=== PATIENT | female | born 1965 | race Hispanic/Latino ===

== ENCOUNTER 2019-05-20 16:32 | Inpatient (IN) | payer OTHER ==
[~2019-05-20] VITALS: Ht 165.1 cm; Wt 89.1 kg
--- OUTSIDE RECORDS SUMMARY | 2019-05-20 16:35 | XMS REPORT ---
[facility] Address Unknown Phone Unavailable Care Team Providers Care Package Worker Name Role Phone Unavailable Unavailable Problems This patient has no known problems. Allergies, Adverse Reactions, Alerts This patient has no known allergies or adverse reactions. Medications This patient has no known medications. Encounters Start Date/Time End Date/Time Encounter Type Admission Type Attending [facility] Care Department Encounter ID 2019-06-07 00:00:00 2019-06-07 00:00:00 Outpatient [facility] [id number] 2019-05-30 00:00:00 2019-05-30 00:00:00 Outpatient [facility] [id number] 2019-05-29 00:00:00 2019-05-29 00:00:00 Outpatient [facility] [id number] 2019-05-17 00:00:00 2019-05-17 00:00:00 Outpatient [facility] [id number] 2019-05-01 00:00:00 2019-05-01 00:00:00 Outpatient [facility] [id number] 2019-05-01 00:00:00 2019-05-01 00:00:00 Outpatient [facility] [id number] 2019-04-18 00:00:00 2019-04-18 00:00:00 Outpatient [facility] [id number] 2019-03-19 08:32:07 2019-03-19 08:32:07 Outpatient [facility] [id number] 2019-02-25 17:14:10 2019-02-25 17:14:10 Outpatient [facility] [id number] 2019-02-13 09:12:59 2019-02-13 09:12:59 Outpatient [facility] [id number] 2018-10-08 17:54:45 2018-10-08 17:54:45 Outpatient [facility] [id number] 2018-08-27 00:00:00 2018-08-27 00:00:00 Outpatient [facility] [id number] 2018-08-07 08:00:16 2018-08-07 08:00:16 Outpatient [facility] [id number] 2018-07-26 15:41:26 2018-07-26 15:41:26 Outpatient [facility] [id number] 2018-06-22 09:35:54 2018-06-22 09:35:54 Outpatient [facility] [id number] 2018-05-30 09:08:05 2018-05-30 09:08:05 Outpatient [facility] [id number] 2018-05-29 10:36:43 2018-05-29 10:36:43 Outpatient [facility] [id number] 2018-05-29 00:00:00 2018-05-29 00:00:00 Outpatient [facility] [id number] 2018-05-28 13:42:27 2018-05-28 13:42:27 Outpatient [facility] [id number] 2018-05-16 11:47:09 2018-05-16 11:47:09 Outpatient [facility] [id number] 2018-05-04 00:00:00 2018-05-04 00:00:00 Outpatient [facility] [id number] 2018-04-25 08:00:32 2018-04-25 08:00:32 Outpatient [facility] [id number] 2018-04-25 00:00:00 2018-04-25 00:00:00 Outpatient [facility] [id number] 2018-04-13 10:58:24 2018-04-13 10:58:24 Outpatient [facility] [id number] 2018-04-06 00:00:00 2018-04-06 00:00:00 Outpatient [facility] [id number] 2018-04-02 08:59:38 2018-04-02 08:59:38 Outpatient [facility] [id number] 2018-03-21 00:00:00 2018-03-21 00:00:00 Outpatient [facility] [id number] 2018-03-12 10:00:55 2018-03-12 10:00:55 Outpatient [facility] [id number] 2018-02-23 11:53:31 2018-02-23 11:53:31 Outpatient [facility] [id number] 2018-02-02 00:00:00 2018-02-02 00:00:00 Outpatient [facility] [id number] 2018-01-09 16:41:40 2018-01-09 16:41:40 Outpatient [facility] [id number] 2018-01-08 10:20:23 2018-01-08 10:20:23 Outpatient [facility] [id number] 2018-01-01 10:15:44 2018-01-01 10:15:44 Outpatient [facility] [id number] 2017-11-22 11:33:45 2017-11-22 11:33:45 Outpatient [facility] [id number] 2017-11-06 10:15:06 2017-11-06 10:15:06 Outpatient [facility] [id number] 2017-10-31 07:51:55 2017-10-31 07:51:55 Outpatient [facility] [id number] 2017-10-31 00:00:00 2017-10-31 00:00:00 Outpatient [facility] [id number] 2017-10-27 08:26:57 2017-10-27 08:26:57 Outpatient [facility] [id number] 2017-09-22 09:51:45 2017-09-22 09:51:45 Outpatient [facility] [id number] 2017-09-15 08:54:18 2017-09-15 08:54:18 Outpatient [facility] [id number] 2017-08-14 10:05:41 2017-08-14 10:05:41 Outpatient [facility] [id number] 2017-06-27 08:46:20 2017-06-27 08:46:20 Outpatient [facility] [id number] 2017-06-23 08:41:09 2017-06-23 08:41:09 Outpatient [facility] [id number] 2017-06-08 14:00:45 2017-06-08 14:00:45 Outpatient [facility] [id number] 2017-05-30 00:00:00 2017-05-30 00:00:00 Outpatient [facility] [id number] 2017-05-25 11:16:02 2017-05-25 11:16:02 Outpatient [facility] [id number] 2017-05-16 08:30:08 2017-05-16 08:30:08 Outpatient [facility] [id number] 2017-04-20 15:34:47 2017-04-20 15:34:47 Outpatient [facility] [id number] 2017-04-14 08:46:50 2017-04-14 08:46:50 Outpatient [facility] [id number] 2017-03-13 08:08:03 2017-03-13 08:08:03 Outpatient [facility] [id number] 2017-03-02 00:00:00 2017-03-02 00:00:00 Outpatient [facility] [id number] 2017-02-24 08:10:33 2017-02-24 08:10:33 Outpatient [facility] [id number] 2017-02-15 10:30:51 2017-02-15 10:30:51 Outpatient [facility] [id number] 2017-02-14 08:47:34 2017-02-14 08:47:34 Outpatient [facility] [id number] 2017-02-10 11:27:00 2017-02-10 11:27:00 Outpatient [facility] [id number] 2017-01-09 09:05:12 2017-01-09 09:05:12 Outpatient [facility] [id number] 2017-01-06 08:07:07 2017-01-06 08:07:07 Outpatient [facility] [id number] 2016-12-21 10:12:07 2016-12-21 10:12:07 Outpatient [facility] [id number]
[2019-05-20] MEDS ORDERED: ENOXAPARIN INJ 80 MG/0.8 ML SYR SC ONE (16:56)
[2019-05-20] MEDS ORDERED: ASPIRIN 81 MG CHEW TAB PO ONE (17:00)
[2019-05-20 17:21] LABS: BASOPHILS % 0.4 % (0.0-1.0); EOSINOPHILS % 0.4 % (0.0-6.0); HEMATOCRIT 42.1 % (34.2-44.1); HEMOGLOBIN 14.7 g/dL (12.0-16.0); LYMPHOCYTES # (AUTO) 0.9 (1.0-3.2); LYMPHOCYTES % 12.6 % (18.0-39.1); MEAN CORPUSCULAR HEMOGLOBIN 30.8 pg (28-32); MEAN CORPUSCULAR HGB CONC 34.9 g/dL (31-35); MEAN CORPUSCULAR VOLUME 88.3 fL (81-99); MONOCYTES # (AUTO) 0.5 (0.2-0.8); NEUTROPHILS # (AUTO) 5.6 (2.1-6.9); NEUTROPHILS % 79.3 % (38.7-80.0); PLATELET COUNT 295 x10e3/uL (140-360); RED BLOOD COUNT 4.77 x10e6/uL (3.6-5.1); RED CELL DISTRIBUTION WIDTH 12.4 % (11.7-14.4)
[2019-05-20 17:33] LABS: ALANINE AMINOTRANSFERASE 19 IU/L (0-55); ALBUMIN 3.7 g/dL (3.5-5.0); ALBUMIN/GLOBULIN RATIO 0.8 (0.8-2.0); ALKALINE PHOSPHATASE 83 IU/L (40-150); ANION GAP 17.8 mmol/L (8-16); BLOOD UREA NITROGEN 18 mg/dL (7-26); BUN/CREATININE RATIO 24 (6-25); CALCIUM 10.5 mg/dL (8.4-10.2); CARBON DIOXIDE 27 mmol/L (22-29); CHLORIDE 87 mmol/L (98-107); CREATINE KINASE 33 IU/L (29-168); CREATININE, SERUM 0.75 mg/dL (0.57-1.11); EST GLOMERULAR FILTRATION RATE > 60 ML/MIN (60-); GLUCOSE 216 mg/dL (74-118); POTASSIUM 3.8 mmol/L (3.5-5.1); SODIUM 128 mmol/L (136-145)
[2019-05-20 17:42] LABS: PROTHROMBIN TIME 13.7 seconds (11.9-14.5)
[2019-05-20 17:43] LABS: PARTIAL THROMBOPLASTIN TIME 38.6 seconds (23.8-35.5)
--- NOTE | 2019-05-20 17:45 | Diagnostic Imaging Report ---
EXAM: CHEST SINGLE (PORTABLE) DATE: 05/20/2019 4:56 PM INDICATION: Chest pain ^ERMD ORDER ^[id number] ^1717 ^Y COMPARISON: None FINDINGS: Lines and tubes: None Heart size normal. There are very low lung volumes with crowding of markings and mild atelectasis at the lung bases. No evidence for consolidation, pleural effusion or pneumothorax. Upper abdomen unremarkable with cholecystectomy clips noted. No acute bony abnormality. IMPRESSION: Low lung volumes with atelectasis at the lung bases. No specific evidence for acute disease. Signed by: Dr. Vicente Landeros M.D. on 05/20/2019 5:42 PM
--- NOTE | 2019-05-20 18:56 | NUR ---
RECIEVED REPORT FROM DARREL PRATT
--- NOTE | 2019-05-20 19:22 | Diagnostic Imaging Report ---
EXAM: CT Chest, Abdomen and Pelvis WITH contrast INDICATION: Shortness of breath COMPARISON: Chest x-ray, 05/20/2019 TECHNIQUE: Chest, abdomen and pelvis were scanned utilizing a multidetector helical scanner from the lung apex to the pubic symphysis before and after administration of IV contrast. Chest examination was performed with PE protocol. Coronal and sagittal reformations were obtained. Routine protocol was performed of the abdomen and pelvis. Dose modulation, iterative reconstruction, and/or weight based adjustment of the mA/kV was utilized to reduce the radiation dose to as low as reasonably achievable. IV CONTRAST: 100 mL of Isovue-370 ORAL CONTRAST: None RADIATION DOSE: Total DLP: 1323.50 mGy*cm Estimated effective dose: (DLP x 0.015 x size factor) mSv COMPLICATIONS: None FINDINGS: LINES and TUBES: None. LUNGS AND AIRWAYS: No filling defect is seen within the main pulmonary artery or branches to the first order. Because of bolus timing and artifact more distal branches are not well evaluated. There is consolidation with air bronchograms in the lower lobes. Trachea and main bronchi are clear. PLEURA: No pleural effusion or pneumothorax. HEART AND MEDIASTINUM: The thyroid gland is normal. No mediastinal, hilar or axillary lymphadenopathy. The heart is normal in size.. There is trace pericardial effusion. The thoracic aorta is unremarkable with no aneurysm or dissection. The main pulmonary artery measures 3.8 cm, dilated. HEPATOBILIARY: No focal hepatic lesions. No biliary ductal dilation. GALLBLADDER: The gallbladder surgically absent with cholecystectomy clips. SPLEEN: No splenomegaly. PANCREAS: No focal masses or ductal dilatation. ADRENALS: No adrenal nodules KIDNEYS/URETERS: Kidneys enhance symmetrically. No hydronephrosis. There is a small hypodensity in the upper pole right kidney, not fully characterized on this examination, with an appearance suggesting a likely cyst. No stones. GI TRACT: There is dilatation of small bowel containing excess fluid. There is dilatation of the colon from the cecum to the splenic flexure. The cecum is markedly distended measuring 11.1 cm diameter. Sutures are seen related to the stomach. The appendix is not visualized. PELVIC ORGANS/BLADDER: Urinary bladder has an unremarkable appearance. No discrete abnormal mass or fluid collection in the pelvis. LYMPH NODES: No lymphadenopathy. VESSELS: Abdominal aorta, IVC and portal system unremarkable. PERITONEUM / RETROPERITONEUM: Trace ascites, seen mainly adjacent to the inferior aspect of the liver. BONES: No acute or suspicious bony lesions. SOFT TISSUES: Superficial surrounding soft tissue shows minimal subcutaneous air in the anterior abdominal wall at the level of the umbilicus. Presumably this is related to recent surgery. There is focal thickening of the anterior abdominal wall in the midline adjacent to these air bubbles. There is adjacent inflammatory stranding in the soft tissue. IMPRESSION: 1. There is marked distention of small bowel and of the colon to the splenic flexure. A specific etiology is not determined and this may represent severe ileus. An intraluminal obstructing lesion in the proximal descending colon could not be excluded but is not seen. 2. There is marked distention of the cecum measuring smudges 11.1 cm which is concerning. At this level spontaneous perforation is possible. There is no evidence for free air seen. 3. There is trace ascites in the abdomen. 4. No evidence for acute pulmonary embolism. 5. Consolidation with air bronchograms in both lower lobes may represent extensive atelectasis or pneumonia. 6. In the anterior abdominal wall, near the umbilical level, there is fat stranding, thickening of the anterior musculature and a few soft tissue air bubbles. This may be entirely post operative although subcutaneous infection is also a consideration. No discrete drainable fluid collection to limits of CT visualization. Signed by: Dr. Vicente Landeros M.D. on 05/20/2019 7:19 PM
[2019-05-20] MEDS ORDERED: HYDROMORPHONE 1MG/1ML INJ IV ONE (19:32)
[2019-05-20] MEDS ORDERED: SODIUM CHLORIDE 0.9% 1000ML 1,000 ML IV ONE (19:45)
[2019-05-20] MEDS ORDERED: DEXTROSE 50% SYRINGE 50 ML IV PRN (20:00)
[2019-05-20] MEDS ORDERED: SODIUM CHLORIDE 0.9% 1000ML 1,000 ML IV SCH (20:15)
[2019-05-20 20:41] LABS: BILIRUBIN,URINE SMALL (NEGATIVE); CLARITY,URINE SL CLOUDY (CLEAR); COLOR,URINE YELLOW (YELLOW); LEUKOCYTE ESTERASE ,URINE NEGATIVE (NEGATIVE); NITRITE,URINE NEGATIVE (NEGATIVE); PROTEIN,URINE DIPSTICK TRACE (NEGATIVE); URINE UROBILINOGEN 1 mg/dL (0.2 - 1)
[2019-05-20 20:44] LABS: KETONES,URINE 2+ (NEGATIVE)
[2019-05-20 20:59] LABS: BACTERIA,URINE MODERATE /HPF; EPITHELIAL CELLS,URINE MANY /LPF
[2019-05-20] MEDS: INSULIN REGULAR, HUMAN 100 UNIT/1 ML 3ML VIAL SQ SCH (21:00)
--- NOTE | 2019-05-20 21:36 | NUR ---
Received report from ER nurse.
[2019-05-20 21:46] VITALS: BP 166/97
--- NOTE | 2019-05-20 21:54 | NUR ---
Patient arrived to floor via stretcher with family. Patient to [id number].
[2019-05-20 22:00] VITALS: BP 166/97
[2019-05-20] MEDS: HYDROMORPHONE 1MG/1ML INJ IV PRN (22:29)
[2019-05-20] MEDS: SODIUM CHLORIDE 0.9% 1000ML 1,000 ML IV SCH (22:31)
[2019-05-20] MEDS ORDERED: SODIUM CHLORIDE 0.9% 50ML 50 ML ONE (22:50)
[2019-05-20] MEDS ORDERED: IOPAMIDOL 370 MG/ML 200 ML INFUS..BTL INJ ONE (22:50)
[2019-05-20] MEDS: ONDANSETRON HCL INJ 2MG/ML 2ML 2 MG/ML VIAL IV PRN (22:58)
[2019-05-21] VITALS (8 sets, daily range): BP systolic 143–178; BP diastolic 89–103
[2019-05-21] MEDS ORDERED: METFORMIN HCL500 MG PO (02:32)
[2019-05-21] MEDS ORDERED: ATORVASTATIN CA20 MG PO (02:33)
[2019-05-21] MEDS: HYDROMORPHONE 1MG/1ML INJ IV PRN ×4 (03:25→20:50)
[2019-05-21] MEDS: ONDANSETRON HCL INJ 2MG/ML 2ML 2 MG/ML VIAL IV PRN ×4 (03:25→20:50)
[2019-05-21 06:19] LABS: BASOPHILS % 0.4 % (0.0-1.0); EOSINOPHILS # (AUTO) 0.2 (0.0-0.4); EOSINOPHILS % 3.1 % (0.0-6.0); HEMATOCRIT 36.2 % (34.2-44.1); HEMOGLOBIN 12.3 g/dL (12.0-16.0); LYMPHOCYTES # (AUTO) 1.1 (1.0-3.2); LYMPHOCYTES % 23.3 % (18.0-39.1); MEAN CORPUSCULAR HEMOGLOBIN 30.6 pg (28-32); MONOCYTES # (AUTO) 0.7 (0.2-0.8); MONOCYTES % 13.9 % (4.4-11.3); NEUTROPHILS # (AUTO) 2.9 (2.1-6.9); NEUTROPHILS % 58.9 % (38.7-80.0); PLATELET COUNT 263 x10e3/uL (140-360); RED BLOOD COUNT 4.02 x10e6/uL (3.6-5.1); RED CELL DISTRIBUTION WIDTH 12.7 % (11.7-14.4)
--- NOTE | 2019-05-21 06:28 | NUR ---
Dr Hugo on the floor to see patient orders received.
[2019-05-21] MEDS ORDERED: BISACODYL 10 MG SUPP PR NR (06:30)
--- NOTE | 2019-05-21 06:36 | NUR ---
Patient off floor to [facility].
[2019-05-21 06:39] LABS: ANION GAP 12.3 mmol/L (8-16); BLOOD UREA NITROGEN 15 mg/dL (7-26); BUN/CREATININE RATIO 21 (6-25); CALCIUM 8.9 mg/dL (8.4-10.2); CARBON DIOXIDE 29 mmol/L (22-29); CHLORIDE 92 mmol/L (98-107); CREATININE, SERUM 0.72 mg/dL (0.57-1.11); EST GLOMERULAR FILTRATION RATE > 60 ML/MIN (60-); GLUCOSE 187 mg/dL (74-118); POTASSIUM 4.3 mmol/L (3.5-5.1); SODIUM 129 mmol/L (136-145)
[2019-05-21] MEDS: INSULIN REGULAR, HUMAN 100 UNIT/1 ML 3ML VIAL SQ SCH ×4 (07:30→20:50)
--- NOTE | 2019-05-21 07:38 | Diagnostic Imaging Report ---
EXAM: Abdomen 3 radiographs INDICATION: ^abdominal distention ^[id number] ^0640 COMPARISON: CT dated 05/20/2019 FINDINGS: Significant gaseous distention of bowel loops throughout the abdomen, measuring up to 12 cm. Limited for evaluation of pneumoperitoneum due to overlapping air-filled bowel loops. Left upper quadrant suture line is visualized. There are also bilateral upper quadrant surgical clips. No acute osseous abnormality. Pelvic phleboliths. IMPRESSION: Significant gaseous distention of bowel loops throughout the abdomen, representing ileus or obstruction. Recommend short-term follow-up. Signed by: Dr. Johnathan Dimas MD on 05/21/2019 7:34 AM
[2019-05-21] MEDS: SODIUM CHLORIDE 0.9% 1000ML 1,000 ML IV SCH ×3 (08:52→19:33)
--- NOTE | 2019-05-21 09:47 | NUR ---
SPOKE TO SANJUANA AT DR. SIMMS'S OFFICE, SHE PAGING DR. SIMMS REGARDING PATIENT'S DESIRE TO GET SOME WATER TO DRINK AND GET SOME FOOD AFTER THE BOWEL MOVEMENT SHE HAD EARLIER.
[2019-05-21] MEDS ORDERED: HYDRALAZINE HCL 20 MG/ML VIAL IV PRN (13:15)
[2019-05-21] MEDS: CEFTRIAXONE SOD 1 GM/NS 50 ML 50 ML IV SCH (13:22)
--- NOTE | 2019-05-21 13:59 | Consultation ---
DATE OF CONSULTATION: 05/21/2019 HISTORY OF PRESENT ILLNESS: The patient is a 53-year-old female, presenting to the emergency room with complaints of abdominal distention as well as some chest pain. She says she has had symptoms for two days. She had surgery about 10 days ago, which was an abdominoplasty. The patient says, she has been taking Tylenol with codeine for pain. She said she developed symptoms about two days ago, but was passing flatus and having liquid stools, but now this has stopped and she is not passing anything per rectum since yesterday. A CT of the abdomen and pelvis revealed dilated colon and also dilated small bowel. The colon beyond the splenic flexure, however, was not dilated. The patient now complains of chest pain. She had nausea and vomiting, this is better today. PAST MEDICAL HISTORY: Significant for diabetes and hypercholesterolemia. MEDICATIONS: At home were atorvastatin and metformin. PAST SURGICAL HISTORY: Previous surgeries include the recent abdominoplasty, section, cholecystectomy, hysterectomy. ALLERGIES: SHE HAS NO KNOWN DRUG ALLERGIES. FAMILY HISTORY: Noncontributory. SOCIAL HISTORY: The patient does not smoke cigarettes or drink alcohol. REVIEW OF SYSTEMS: As stated above. She has had no fever, no weight loss. PHYSICAL EXAMINATION: GENERAL: The patient is awake and alert, in no distress. VITAL SIGNS: Reveal heart rate of around 120, blood pressure is normal. O2 saturation is normal. HEENT: Pupils are equal, round, and reactive to light. Sclerae are nonicteric. NECK: Has no masses. LUNGS: Equal breath sounds are clear bilaterally with decreased breath sounds at the bases bilaterally. CARDIAC: Regular rate and rhythm with tachycardia. ABDOMEN: Moderately distended, is soft. There was no significant tenderness. No signs of peritonitis. No mass. There were surgical wounds, which were intact and clean. EXTREMITIES: Have no edema. Pulses are palpable. NEUROLOGIC: Intact. LABORATORY DATA: White blood cell count on admission was 7.04, hemoglobin 14.7, hematocrit 42, platelet count was normal. Chemistries revealed sodium of 128 and chloride of 97. BUN and creatinine were normal. Liver function tests, elevated bilirubin 1.3, calcium level also elevated 10.5. ASSESSMENT: A 53-year-old female with findings most likely of paralytic ileus. Cause could be due to electrolyte abnormalities or with medication she has been taking. There are no signs of peritonitis. No findings that would warrant immediate surgical intervention. Her cecum was very dilated and this is concern for possible perforation, although no signs of that now. Plan to repeat abdominal x-ray today. Keep the patient n.p.o. on IV fluids. Repeat electrolytes. She is on normal saline, which are appropriate. IV fluids for her hyponatremia. Thank you for asking me to see Ms. Bermudez. MD GIANNI Vann/MODL /[id number]
--- NOTE | 2019-05-21 14:05 | NUR ---
Visit made by the Spiritual Care Department Pastoral Visitor, Carley Jacob. Pt sleeping soundly and no family present. Pastoral Visitor left a card describing availability of digital marketing intern and instructions on how to contact a digital marketing intern. [employer] Spiritual Care Department O: [phone] Pager: [phone] ([phone] number calling from)
--- NOTE | 2019-05-21 19:19 | NUR ---
WALKING ROUNDS PERFORMED, RECEIVED PT LAYING SEMI FOWLERS IN BED, AAOX3, RR EVEN AND NON-LABORED, O2 BY NC AT 2L. NO S/SX OF DISTRESS NOTED. LEFT PT LAYING SEMI FOWLERS IN BED, BED IN LOW LOCKED POSITION, SIDE RAILS UPX2, CALL LIGHT AND PHONE WITHIN REACH.
--- NOTE | 2019-05-21 19:56 | History and Physical ---
CHIEF COMPLAINT: Abdominal pain, nausea, and vomiting. HISTORY OF PRESENT ILLNESS: This is a 53-year-old female, who recently had a tummy tuck performed about 1 to 2 weeks ago which she reports, who came into the emergency room yesterday with complaints of abdominal pain, nausea, vomiting, and abdominal distention. The patient reports that she has been having abdominal distention ongoing for the last four days, but of note noticed that her stomach has been more distended as of yesterday. Reports decreased oral intake, nausea, vomiting, and not eating well. On arrival here, CT of the abdomen and pelvis consistent with an ileus. General Surgery was consulted. The patient was seen and evaluated at bedside on the medical floor. She is currently very distended, sitting on a bedside chair with no other issues. She is on IV fluids. She is n.p.o. The patient got some Bisacodyl Suppository with minimal relief. Repeat KUB is consistent with significant gaseous distention throughout the abdomen. REVIEW OF SYSTEMS: Pertinent positives: Abdominal distention, nausea, vomiting, and decreased oral intake. Pertinent negatives: Denies any chest pain, palpitation, dysuria, hematuria, frequency, urgency, lightheadedness, dizziness, cough, congestion, fever, or any other complaints. The rest of 14-point review of systems are reviewed with the patient and are negative. ALLERGIES: NO KNOWN DRUG ALLERGIES. HOME MEDICATIONS: 1. Atorvastatin 20 mg daily. 2. Metformin 500 mg p.o. b.i.d. PAST MEDICAL HISTORY: Type 2 diabetes, hyperlipidemia, and recent tummy tuck performed by plastic surgeon. PAST SURGICAL HISTORY: Tummy tuck procedure about 2 weeks ago. FAMILY HISTORY: Hypertension and diabetes. SOCIAL HISTORY: No drugs. No alcohol. Does not smoke. Good social support. She is . PHYSICAL EXAMINATION: VITAL SIGNS: Temperature is 97.6, pulse is 111, respiratory rate is 20, blood pressure is 162/93, and pulse ox 97% on room air. GENERAL: Not in acute distress. Alert and oriented x3. Cooperative on examination. HEENT: Head, normocephalic and atraumatic. Eyes, pupils are equal, round, and reactive to light bilaterally. Extraocular movements intact bilaterally. Throat, no evidence of erythema or exudates in the posterior pharynx. Has poor dentition. NECK: Supple. Good range of motion. PULMONARY: Clear to auscultation bilaterally. No wheezing, no rales, no rhonchi, and no crackles appreciated. CARDIOVASCULAR: Positive S1 and S2. No murmurs, rubs, or gallops appreciated. ABDOMEN: Soft, nondistended, and nontender to palpation. Bowel sounds present. MUSCULOSKELETAL: Strength is 5/5 throughout. No evidence of any muscle deficits on examination. No weakness appreciated. NEUROLOGIC: Cranial nerves II through XII grossly intact. No evidence of any neurological deficits on exam. SKIN: Intact. Warm to touch. Good cap refill. PSYCHIATRIC: Normal affect and mood. EXTREMITIES: No edema. Good range of motion throughout. LAB FINDINGS: Show white count is 4.9, hemoglobin 12, hematocrit 36, and platelets of 263. Coagulation; PT 13, INR 1, and PTT 38. D-dimer elevated. Sodium 129, potassium 4.3, chloride 92, bicarbonate 29, anion gap of 12, BUN 15, creatinine is 0.72, glucose is 187, calcium is 8.9, total bilirubin is 1.3, AST 19, ALT 19, and alkaline phosphatase 83. CK 33 and CK-MB 1.5. Troponins are negative. Total protein 8.5 and albumin 3.7. Urinalysis, negative. Microbiology, none. Chest x-ray shows low lung volumes with atelectasis at the lung bases. No specific evidence for acute disease. CTA of the chest shows no evidence of acute pulmonary embolism. CT of the abdomen and pelvis shows marked distention of the colon to the splenic flexure. Specific etiology is unknown at this time. There is intramural obstructing lesion in the proximal descending colon could not be excluded as seen. There is a marked distention of the cecum measuring 11 cm in size, but there is no evidence of any free air. Consolidation with air bronchograms in both lower lobes may represent extensive atelectasis or pneumonia. The anterior abdominal wall near the umbilicus, there is some fat stranding, thickening of the anterior soft tissue air bubbles. This may be entirely postoperative, although subcutaneous infection is also a consideration. No discrete drainable fluid collection to limits of the CT visualization. Repeat abdominal x-ray this morning shows distended gaseous bowel loops throughout the abdomen representing ileus or obstruction. IMPRESSION: 1. Abdominal distention secondary to underlying ileus. 2. History of type 2 diabetes. 3. Hyperlipidemia. 4. Recent tummy tuck procedure performed about 1 to 2 weeks ago by Plastic Surgery. PLAN: At this time, General Surgery, Dr. Hugo was consulted. The patient was given some Bisacodyl Suppository with minimal relief. She still has distended abdomen. At this time, she does not have an NG tube. It seemed that she does not want any NG tube at this time. She is n.p.o., on IV fluids and minimize pain control to help stimulate the gut. Repeat KUB still shows distended abdomen. I am going to speak with General Surgery to see if there is a next plan of care in terms of may be some more Bisacodyl or some possible simethicone needed. Otherwise, I will continue to follow with General Surgery recommendations. In terms of her home medications, she is currently n.p.o., no need for any oral medications at this time. I will continue with IV fluids, D5 NS and we get repeat labs in the morning. I explained the plan of care to the patient at bedside with her present as well and also discussed this with the nursing staff. MD KIAN Paz/LOREN /[id number]
--- NOTE | 2019-05-21 20:50 | NUR ---
SPOKE WITH MD MEDINA CONCERNING ELEVATED HR. NEW ORDERS RECEIVED FOR METOPROLOL AND CONTACT MD SIMMS CONCERNING POSSIBLE NGT PLACEMENT.
--- NOTE | 2019-05-21 20:55 | NUR ---
SPOKE WITH MD SIMMS CONCERNING NGT PLACEMENT. NO PLANS FOR NGT AT THIS TIME, CONTINUE TO HAVE PATIENT NPO AND MONITOR. PT REPORTS NO NAUSEA OR VOMITING AT THIS TIME.
[2019-05-22] VITALS (8 sets, daily range): BP systolic 128–153; BP diastolic 59–101
[2019-05-22] MEDS: METOPROLOL TARTRATE INJ 1 MG/ML VIAL IV PRN ×3 (00:08→15:36)
[2019-05-22] MEDS: ONDANSETRON HCL INJ 2MG/ML 2ML 2 MG/ML VIAL IV PRN (00:23)
[2019-05-22] MEDS: HYDROMORPHONE 1MG/1ML INJ IV PRN ×4 (00:23→19:10)
[2019-05-22] MEDS: SODIUM CHLORIDE 0.9% 1000ML 1,000 ML IV SCH ×3 (03:33→15:36)
[2019-05-22 05:49] LABS: HEMATOCRIT 38.7 % (34.2-44.1); HEMOGLOBIN 12.9 g/dL (12.0-16.0); MEAN CORPUSCULAR HEMOGLOBIN 30.1 pg (28-32); MEAN CORPUSCULAR HGB CONC 33.3 g/dL (31-35); MEAN CORPUSCULAR VOLUME 90.4 fL (81-99); PLATELET COUNT 314 x10e3/uL (140-360); RED BLOOD COUNT 4.28 x10e6/uL (3.6-5.1); RED CELL DISTRIBUTION WIDTH 12.8 % (11.7-14.4)
[2019-05-22 06:10] LABS: ANION GAP 15.5 mmol/L (8-16); BLOOD UREA NITROGEN 16 mg/dL (7-26); BUN/CREATININE RATIO 24 (6-25); CALCIUM 9.4 mg/dL (8.4-10.2); CARBON DIOXIDE 27 mmol/L (22-29); CHLORIDE 96 mmol/L (98-107); CREATININE, SERUM 0.67 mg/dL (0.57-1.11); EST GLOMERULAR FILTRATION RATE > 60 ML/MIN (60-); GLUCOSE 205 mg/dL (74-118); POTASSIUM 4.5 mmol/L (3.5-5.1); SODIUM 134 mmol/L (136-145)
[2019-05-22] MEDS ORDERED: BISACODYL 10 MG SUPP PR ONE (06:45)
--- NOTE | 2019-05-22 07:16 | NUR ---
report given to day nurse. patient is resting comfortably in bed. bed is in lowest position and call light is within reach.
[2019-05-22] MEDS: INSULIN REGULAR, HUMAN 100 UNIT/1 ML 3ML VIAL SQ SCH ×4 (07:30→21:00)
--- NOTE | 2019-05-22 07:35 | NUR ---
NG TUBE INSERTED TO THE LEFT NARE PT TOLERATE WELL WILL CONFIRM PLACEMENT WITH SCHEDULED KUB THIS AM
[2019-05-22] MEDS ORDERED: LORAZEPAM INJ 2 MG/ML VIAL IV PRN (07:45)
[2019-05-22 08:41] LABS: BAND NEUTROPHILS % (MANUAL) 6 %; EOSINOPHILS % (MANUAL) 4 % (0-7); LYMPHOCYTES % (MANUAL) 42 % (19-48); MONOCYTES % (MANUAL) 20 % (3.4-9.0); NEUTROPHILS % (MANUAL) 24 % (40-74); PLATELET ESTIMATE ADEQUATE; PLATELET MORPHOLOGY COMMENT NORMAL; RBC MORPHOLOGY COMMENT NORMAL
--- NOTE | 2019-05-22 09:21 | NUR ---
SPOKE WITH MD GIRON ABOUT PT REFUSAL FOR RECTAL TUBE, AND FEELING STOOL PRESENT WHEN INSERTING SCHEDULED DULCOLAX SUPP MD ASKED IF NG WAS IN. ANSWER WAS YES MD STATES TO DC ORDER FOR RECTAL TUBE AT THIS TIME
--- NOTE | 2019-05-22 09:53 | Diagnostic Imaging Report ---
Exam: KUB - 2 views Indication: Abdominal distention Comparison: KUB of 05/21/2019 Findings: Interval placement of NG tube with tip in the stomach and side port in the region of the gastroesophageal junction. Again seen are significantly dilated air-filled loops of large and small bowel throughout the entire abdomen. Overall extent of dilation is similar. The dilated small bowel loops measure up to 5.9 cm in diameter and large bowel measures up to 12 cm in diameter. No intraperitoneal free air. The osseous structures appear unchanged. Phleboliths in the pelvis. Impression: Interval placement of NG tube with tip in the stomach and side port in the region of the GE junction. Tube can be advanced approximately 5 cm. No significant interval change in dilated air-filled loops of large and small bowel throughout the entire abdomen, consistent with ileus or obstruction. Signed by: Ghazal Howard MD on 05/22/2019 9:49 AM
--- NOTE | 2019-05-22 10:45 | NUR ---
NG ADVANCED ABOUT 5CC PER KUB RECOMMENDATION GIVEN PRN ATIVAN IV FOR PT ANXIETY AT THIS TIME WILL CONTINUE TO MONITOR
--- NOTE | 2019-05-22 11:37 | NUR ---
MD GIRON EXPLAINED PROCEDURE WITH PT AT BEDSIDE PT AGREED AND HAS SIGNED CONSENT AT THIS TIME
--- NOTE | 2019-05-22 13:26 | Progress Note ---
DATE: Medicine Progress Note SUBJECTIVE: The patient still has abdominal distention. NG tube was placed today by General Surgery. GI was consulted and he is in the process of doing a decompression procedure later this morning. I already spoke to Dr. John already. PHYSICAL EXAMINATION: VITAL SIGNS: Temperature is 96.4, pulse is 123, respiratory rate is 18, blood pressure is 139/88, and pulse ox 96% on room air. GENERAL: Not in acute distress. Alert and oriented x3. Cooperative on examination. HEENT: Head; normocephalic, atraumatic. Eyes; pupils are equal, round, and reactive to light bilaterally. Extraocular movements intact bilaterally. Throat; no evidence of erythema or exudates in the posterior pharynx. Has poor dentition. NECK: Supple. Good range of motion. PULMONARY: Clear to auscultation bilaterally. No wheezing, no rales, no rhonchi, no crackles appreciated. CARDIOVASCULAR: Positive S1 and S2. No murmurs, rubs, or gallops appreciated. ABDOMEN: Distended, tympanic, has some mild tenderness, but significantly distended with an NG tube placed. MUSCULOSKELETAL: Strength is 5/5 throughout. No evidence of any muscle deficits on examination. No weakness appreciated. NEUROLOGIC: Cranial nerves II through XII grossly intact. No evidence of any neurological deficits on exam. SKIN: Intact. Warm to touch. Good cap refill. PSYCHIATRIC: Normal affect and mood. EXTREMITIES: No edema. Good range of motion throughout. LABORATORY DATA: Labs show white count 2.1, hemoglobin 12.9, hematocrit is 38.7, and platelets of 314. Chemistry; sodium 134, potassium 4.5, chloride 96, bicarbonate 27, anion gap of 15, BUN 16, creatinine 0.67, glucose is 204, and calcium 9.4. Troponins are all negative. IMAGING STUDIES: Abdominal x-ray this morning, 05/22/2019, shows NG tube in the tip of the stomach on the GE junction. No significant interval change. Dilated air fluid loops of large and small bowel throughout the entire abdomen consistent with ileus or obstruction. IMPRESSION: 1. Abdominal distention secondary to underlying ileus versus obstruction. 2. History of type 2 diabetes. 3. Hyperlipidemia. 4. Recent tummy tuck procedure performed 1 to 2 weeks ago by Plastic Surgery. PLAN: At this time, General Surgery inserted an NG tube and consulted with GI. The patient now is going to undergo a colonoscopy decompression that will be performed later this morning by Dr. John. We will continue with n.p.o., IV fluids, minimal pain control to avoid gut slow down. I did add Ativan p.r.n. for anxiety. Her heart rate is elevated due to underlying pain and abdominal distention, but she does have Lopressor p.r.n. Once her decompression is performed, I feel like her heart rate will come down and she will feel less anxious. We will go ahead and order a.m. labs as well. N.p.o. Discussed plan of care with nursing staff. MD KIAN Paz/LOREN /[id number]
[2019-05-22] MEDS ORDERED: PROPOFOL IV EMULSION 10 MG/ML 20 ML VIAL ONE (13:53)
[2019-05-22] MEDS ORDERED: SUCCINYLCHOLINE 200 MG/10 ML SYR ONE (13:53)
[2019-05-22] MEDS ORDERED: LIDOCAINE HCL 2% LOCAL INJ 5 ML SDV VIAL INJ ONE (13:53)
[2019-05-22] MEDS ORDERED: GLYCOPYRROLATE INJ 1MG/ 5 ML SYR ONE (13:53)
[2019-05-22] MEDS ORDERED: SEVOFLURANE INHAL SOLN 250 ML PEN BTL ONE (13:53)
[2019-05-22] MEDS ORDERED: NEOSTIGMINE 5 MG/5ML SYR ONE (13:53)
[2019-05-22] MEDS ORDERED: ROCURONIUM BROMIDE 10 MG/ML 5ML VIAL ONE (13:53)
[2019-05-22] MEDS ORDERED: DEXAMETHASONE SOD PHOS INJ 4 MG/ML VIAL ONE (13:53)
[2019-05-22] MEDS ORDERED: ONDANSETRON HCL INJ 2MG/ML 2ML 2 MG/ML VIAL ONE (13:53)
[2019-05-22] MEDS ORDERED: MIDAZOLAM HCL 2 MG/2 ML VIAL ONE (14:38)
[2019-05-22] MEDS ORDERED: FENTANYL CITRATE/PF 100MCG/2 ML INJ ONE (14:38)
[2019-05-22] MEDS: CEFTRIAXONE SOD 1 GM/NS 50 ML 50 ML IV SCH (15:36)
--- NOTE | 2019-05-22 17:09 | Diagnostic Imaging Report ---
Exam: KUB - 2 views Indication: Bowel Obstruction Comparison: Multiple prior KUBs, most recently from earlier the same day. Findings: NG tube has been advanced, now with tip and side-port in the stomach. A drainage catheter overlies the left abdomen. Redemonstration of air-filled dilated loops of bowel. Dilated loops of small bowel measure up to 7.1 cm, increased from the prior study. There is now no gas in the colon. No definite evidence of free air or pneumatosis. Status post cholecystectomy. Impression: Findings of small bowel obstruction with dilated loops of small bowel now measuring up to 7.1 cm (5.9 cm previously). There is now also nonvisualization of previously seen air in the large bowel. Interval advancement of NG tube. Drainage catheter overlies the left abdomen. Signed by: Ghazal Howard MD on 05/22/2019 5:06 PM
--- NOTE | 2019-05-22 18:37 | NUR ---
PT C/O NANCY IN MOUTH . SPOKE TO MD MEDINA NEW ORDERS RECEIVED
--- NOTE | 2019-05-22 18:42 | NUR ---
PAGED MD GIRON REGARDING KUB RESULTS AWAITING FOR CALL BACK
--- NOTE | 2019-05-22 18:48 | NUR ---
PAGED MD SIMMS REGARDING KUB RESULTS WELL AWAITING FOR CALL BACK
--- NOTE | 2019-05-22 18:55 | NUR ---
MD SIMMS IS AWARE OF KUB NOW ORDERS RECEIVED
[2019-05-22] MEDS: NYSTATIN SUSPENSION 5 ML UDC PO SCH (21:50)
[2019-05-23] VITALS (9 sets, daily range): BP systolic 118–142; BP diastolic 67–86
[2019-05-23] MEDS: SODIUM CHLORIDE 0.9% 1000ML 1,000 ML IV SCH ×4 (01:09→19:26)
[2019-05-23] MEDS: METOPROLOL TARTRATE INJ 1 MG/ML VIAL IV PRN ×2 (01:09→12:39)
[2019-05-23 05:49] LABS: BASOPHILS % 0.6 % (0.0-1.0); EOSINOPHILS # (AUTO) 0.2 (0.0-0.4); EOSINOPHILS % 5.2 % (0.0-6.0); HEMATOCRIT 32.5 % (34.2-44.1); HEMOGLOBIN 10.8 g/dL (12.0-16.0); LYMPHOCYTES # (AUTO) 1.1 (1.0-3.2); LYMPHOCYTES % 34.5 % (18.0-39.1); MEAN CORPUSCULAR HEMOGLOBIN 30.3 pg (28-32); MEAN CORPUSCULAR HGB CONC 33.2 g/dL (31-35); MEAN CORPUSCULAR VOLUME 91.3 fL (81-99); MONOCYTES # (AUTO) 0.6 (0.2-0.8); MONOCYTES % 18.5 % (4.4-11.3); NEUTROPHILS # (AUTO) 1.3 (2.1-6.9); NEUTROPHILS % 40.6 % (38.7-80.0); PLATELET COUNT 227 x10e3/uL (140-360); RED BLOOD COUNT 3.56 x10e6/uL (3.6-5.1); RED CELL DISTRIBUTION WIDTH 12.8 % (11.7-14.4)
[2019-05-23] MEDS: HYDROMORPHONE 1MG/1ML INJ IV PRN ×2 (06:12→21:24)
[2019-05-23 06:19] LABS: ANION GAP 11.5 mmol/L (8-16); BLOOD UREA NITROGEN 13 mg/dL (7-26); BUN/CREATININE RATIO 22 (6-25); CALCIUM 8.8 mg/dL (8.4-10.2); CARBON DIOXIDE 30 mmol/L (22-29); CHLORIDE 98 mmol/L (98-107); EST GLOMERULAR FILTRATION RATE > 60 ML/MIN (60-); GLUCOSE 137 mg/dL (74-118); POTASSIUM 3.5 mmol/L (3.5-5.1); SODIUM 136 mmol/L (136-145)
[2019-05-23] MEDS: INSULIN REGULAR, HUMAN 100 UNIT/1 ML 3ML VIAL SQ SCH ×4 (07:30→19:53)
[2019-05-23] MEDS: NYSTATIN SUSPENSION 5 ML UDC PO SCH ×4 (09:00→20:56)
[2019-05-23] MEDS: CEFTRIAXONE SOD 1 GM/NS 50 ML 50 ML IV SCH (13:17)
--- NOTE | 2019-05-23 19:26 | Progress Note ---
DATE: 05/23/2019 Medicine Progress Note SUBJECTIVE: The patient had a rectal tube yesterday to intermittent wall suctioning with much improved decompression. The patient was feeling much better now. Her abdomen was still slightly distended. NG tube was removed. She is on sips of water and ice chips. PHYSICAL EXAMINATION: VITAL SIGNS: Temperature is 97.8, pulse is 116, respiratory rate 19, blood pressure 122/83, and pulse ox 96% on nasal cannula. GENERAL: Not in acute distress. Alert and oriented x3. Cooperative on examination. HEENT: Head; normocephalic, atraumatic. Eyes; pupils are equal, round, and reactive to light bilaterally. Extraocular movements intact bilaterally. Throat; no evidence of erythema or exudates in the posterior pharynx. Has poor dentition. NECK: Supple. Good range of motion. PULMONARY: Clear to auscultation bilaterally. No wheezing, no rales, no rhonchi, no crackles appreciated. CARDIOVASCULAR: Positive S1 and S2. No murmurs, rubs, or gallops appreciated. ABDOMEN: Soft, nondistended, and nontender to palpation. Bowel sounds present. Abdomen was distended with Foster, smaller in size. MUSCULOSKELETAL: Strength is 5/5 throughout. No evidence of any muscle deficits on examination. No weakness appreciated. NEUROLOGIC: Cranial nerves 2 through 12 are grossly intact. No evidence of any neurological deficits on exam. SKIN: Intact. Warm to touch. Good cap refill. PSYCHIATRIC: Normal affect and mood. EXTREMITIES: No edema. Good range of motion throughout. LABORATORY DATA: Labs show white count 3.3, hemoglobin 7.8, hematocrit 32.5, platelets of 227. Coagulation PT 13, INR 1, PTT 38.6. IMAGING STUDIES: KUB from yesterday shows finding of small-bowel obstruction with dilated loops of small bowel, now measuring 7.1 cm. . IMPRESSION: 1. Abdominal distention, secondary to underlying ileus versus obstruction, now with a rectal tube intermittent wall suctioning. 2. History of type 2 diabetes. 3. Hyperlipidemia. 4. Recent tummy tuck performed in 1 to 2 weeks ago by plastic surgery. PLAN: At this time, she currently has a rectal tube to intermittent wall suctioning with much improved decompression. Her NG tube was removed. General Surgery and GI were following. She is only on water and ice chips. IV fluids as well. She does have some p.r.n. Ativan for anxiety. However, still slightly elevated, but she is still n.p.o. for any solid food or any solid pills. We will continue with IV Lopressor for now p.r.n. Otherwise, we will continue with plan of care. Do KUB in the morning and labs in the morning. MD KIAN Paz/JORGEL /[id number]
[2019-05-23] MEDS: ONDANSETRON HCL INJ 2MG/ML 2ML 2 MG/ML VIAL IV PRN (21:22)
--- NOTE | 2019-05-23 22:10 | NUR ---
Assessment done.no resp.distress.ambulated to the toilette and voided.rectal tube is in place and connected to suction wall.bed locked and in lowest position.phone and call light within reach.instructed to call fo assistance as needed.stable condition.
[2019-05-24] VITALS (7 sets, daily range): BP systolic 122–145; BP diastolic 69–79
[2019-05-24] MEDS: SODIUM CHLORIDE 0.9% 1000ML 1,000 ML IV SCH ×4 (03:48→20:00)
[2019-05-24] MEDS: ONDANSETRON HCL INJ 2MG/ML 2ML 2 MG/ML VIAL IV PRN ×2 (03:57→11:32)
[2019-05-24] MEDS: HYDROMORPHONE 1MG/1ML INJ IV PRN ×2 (03:58→11:32)
[2019-05-24 06:02] LABS: BASOPHILS % 0.5 % (0.0-1.0); EOSINOPHILS # (AUTO) 0.2 (0.0-0.4); EOSINOPHILS % 4.8 % (0.0-6.0); HEMATOCRIT 30.5 % (34.2-44.1); HEMOGLOBIN 10.3 g/dL (12.0-16.0); LYMPHOCYTES # (AUTO) 1.3 (1.0-3.2); LYMPHOCYTES % 31.8 % (18.0-39.1); MEAN CORPUSCULAR HEMOGLOBIN 30.7 pg (28-32); MEAN CORPUSCULAR HGB CONC 33.8 g/dL (31-35); MONOCYTES # (AUTO) 0.6 (0.2-0.8); MONOCYTES % 13.1 % (4.4-11.3); NEUTROPHILS % 48.4 % (38.7-80.0); PLATELET COUNT 217 x10e3/uL (140-360); RED BLOOD COUNT 3.35 x10e6/uL (3.6-5.1); RED CELL DISTRIBUTION WIDTH 12.9 % (11.7-14.4)
[2019-05-24 06:42] LABS: ANION GAP 10.7 mmol/L (8-16); BLOOD UREA NITROGEN 7 mg/dL (7-26); BUN/CREATININE RATIO 15 (6-25); CALCIUM 8.2 mg/dL (8.4-10.2); CARBON DIOXIDE 26 mmol/L (22-29); CHLORIDE 99 mmol/L (98-107); CREATININE, SERUM 0.47 mg/dL (0.57-1.11); EST GLOMERULAR FILTRATION RATE > 60 ML/MIN (60-); GLUCOSE 84 mg/dL (74-118); SODIUM 133 mmol/L (136-145)
[2019-05-24 07:04] LABS: POTASSIUM 2.7 mmol/L (3.5-5.1)
--- NOTE | 2019-05-24 07:09 | NUR ---
Bedside shift report given to the oncoming Rn.stable condition.
[2019-05-24] MEDS: INSULIN REGULAR, HUMAN 100 UNIT/1 ML 3ML VIAL SQ SCH ×4 (07:30→19:57)
[2019-05-24] MEDS: NYSTATIN SUSPENSION 5 ML UDC PO SCH ×4 (08:30→22:10)
[2019-05-24] MEDS ORDERED: POTASSIUM CHLORIDE 10MEQ EA PO ONE ×2 (08:30→12:00)
--- NOTE | 2019-05-24 09:14 | Diagnostic Imaging Report ---
Abdomen, 1 view. History: Ileus. Comparison: 05/22/2019. Findings: A rectal tube is again seen extending to the region of the hepatic flexure. Several mildly dilated loops of small bowel are present in the upper abdomen, decreased in number and size compared to prior exam. There are no masses or abnormal calcifications. The osseous structures are intact. IMPRESSION: Decreased small bowel dilatation. Signed by: Laurent Ayala on 05/24/2019 9:11 AM
--- NOTE | 2019-05-24 12:10 | NUR ---
Removed rectal tube at this time. Patient tolerated well. Tip intact. Brown stool noted around tube. No blood noted.
[2019-05-24] MEDS: CEFTRIAXONE SOD 1 GM/NS 50 ML 50 ML IV SCH (12:37)
--- NOTE | 2019-05-24 18:28 | Progress Note ---
DATE: 05/24/2019 Medicine Progress Note SUBJECTIVE: The patient is doing much better today. Her rectal tube was removed. Her NG tube was removed yesterday. She is feeling much better now. Her diet has been advanced. Her abdomen is not distended, soft. Had several bowel movements. PHYSICAL EXAMINATION: VITAL SIGNS: Temperature is 97.5, pulse 101, respiratory rate is 20, blood pressure 145/79, pulse ox 93% on 2 L nasal cannula. GENERAL: Not in acute distress. Alert and oriented x3. Cooperative on examination. HEENT: Head; normocephalic, atraumatic. Eyes; pupils are equal, round, and reactive to light bilaterally. Extraocular movements intact bilaterally. Throat; no evidence of erythema or exudates in the posterior pharynx. Has poor dentition. NECK: Supple. Good range of motion. PULMONARY: Clear to auscultation bilaterally. No wheezing, no rales, no rhonchi, no crackles appreciated. CARDIOVASCULAR: Positive S1 and S2. No murmurs, rubs, or gallops appreciated. ABDOMEN: Soft, nondistended, and nontender to palpation. Bowel sounds present. MUSCULOSKELETAL: Strength is 5/5 throughout. No evidence of any muscle deficits on examination. No weakness appreciated. NEUROLOGIC: Cranial nerve II through XII are grossly intact. No evidence of any neurological deficits on exam. SKIN: Intact. Warm to touch. Good cap refill. PSYCHIATRIC: Normal affect and mood. EXTREMITIES: No edema. Good range of motion throughout. LABORATORY FINDINGS: Show white count 4.2, hemoglobin 10.3, hematocrit 31, platelets of 217. Chemistry; sodium 133, potassium 2.7 replaced, chloride 99, bicarb 26, anion gap of 10, BUN is 7, creatinine is 0.47, glucose is 84, calcium is 8.2. IMAGING STUDIES: Abdominal x-ray today shows decreased small-bowel dilatation. IMPRESSION: 1. Abdominal distention secondary to underlying ileus versus small bowel obstruction, now improving with rectal tube removed and NG tube removed. 2. History of type 2 diabetes. 3. Hyperlipidemia. 4. Recent tummy tuck performed 1-2 weeks ago by Plastic Surgery. PLAN: At this time, rectal tube was removed today. Her abdomen is soft, nondistended, and nontender to palpation. Her diet has been advanced and she is tolerating well. She has had several bowel movements yesterday. At this time, continue same plan of care. We will monitor closely. Get jeremiah PATEL to further evaluate. MD KIAN Paz/LOREN /[id number]
[2019-05-24] MEDS: LUBIPROSTONE 24 MCG CAP PO SCH (19:04)
--- NOTE | 2019-05-24 19:06 | NUR ---
WALKING ROUNDS PERFORMED, RECEIVED PT LAYING SEMI FOWLERS IN BED, AAOX3, RR EVEN AND NON-LABORED, ON ROOM AIR. NO S/SX OF DISTRESS NOTED. LEFT PT LAYING SEMI FOWLERS IN BED, BED IN LOW LOCKED POSITION, SIDE RAILS UP X2, CALL LIGHT AND PHONE WITHIN REACH.
[2019-05-25 00:30] VITALS: BP 152/88
[2019-05-25] MEDS: SODIUM CHLORIDE 0.9% 1000ML 1,000 ML IV SCH ×2 (04:06→12:16)
[2019-05-25 05:39] LABS: BASOPHILS % 0.7 % (0.0-1.0); EOSINOPHILS # (AUTO) 0.1 (0.0-0.4); EOSINOPHILS % 3.1 % (0.0-6.0); HEMATOCRIT 32.5 % (34.2-44.1); LYMPHOCYTES % 22.9 % (18.0-39.1); MEAN CORPUSCULAR HEMOGLOBIN 30.2 pg (28-32); MEAN CORPUSCULAR HGB CONC 33.8 g/dL (31-35); MEAN CORPUSCULAR VOLUME 89.3 fL (81-99); MONOCYTES # (AUTO) 0.5 (0.2-0.8); MONOCYTES % 12.8 % (4.4-11.3); NEUTROPHILS # (AUTO) 2.5 (2.1-6.9); NEUTROPHILS % 58.6 % (38.7-80.0); PLATELET COUNT 214 x10e3/uL (140-360); RED BLOOD COUNT 3.64 x10e6/uL (3.6-5.1); RED CELL DISTRIBUTION WIDTH 12.5 % (11.7-14.4)
[2019-05-25 05:40] VITALS: BP 126/64
[2019-05-25 06:01] LABS: ANION GAP 12.7 mmol/L (8-16); BLOOD UREA NITROGEN < 5 mg/dL (7-26); CALCIUM 8.4 mg/dL (8.4-10.2); CARBON DIOXIDE 27 mmol/L (22-29); CHLORIDE 101 mmol/L (98-107); CREATININE, SERUM 0.48 mg/dL (0.57-1.11); EST GLOMERULAR FILTRATION RATE > 60 ML/MIN (60-); GLUCOSE 106 mg/dL (74-118); SODIUM 138 mmol/L (136-145)
[2019-05-25 06:02] LABS: BUN/CREATININE RATIO 10 (6-25)
[2019-05-25 06:03] LABS: POTASSIUM 2.7 mmol/L (3.5-5.1)
--- NOTE | 2019-05-25 06:11 | NUR ---
SPOKE WITH MD MEDINA CONCERNING CRITICAL POTASSIUM LEVEL. NEW ORDERS RECEIVED.
--- NOTE | 2019-05-25 06:54 | Diagnostic Imaging Report ---
EXAM: Abdomen 2 Views INDICATION: ^sbo ^[id number] ^0500 COMPARISON: 05/24/2019 FINDINGS: Dilated air-filled small bowel loops. No signs of pneumoperitoneum. No acute osseous abnormality. IMPRESSION: Obstructive bowel gas pattern. Signed by: Dr. Johnathan Dimas MD on 05/25/2019 6:51 AM
[2019-05-25] MEDS: INSULIN REGULAR, HUMAN 100 UNIT/1 ML 3ML VIAL SQ SCH ×3 (07:30→17:47)
[2019-05-25] MEDS: LUBIPROSTONE 24 MCG CAP PO SCH ×2 (07:42→17:00)
[2019-05-25 08:00] VITALS: BP 131/79
[2019-05-25 09:17] VITALS: BP 131/79
[2019-05-25] MEDS: POTASSIUM CHLORIDE 20 MEQ TAB CR PO SCH ×2 (09:17→14:59)
[2019-05-25] MEDS: NYSTATIN SUSPENSION 5 ML UDC PO SCH ×3 (09:17→17:47)
[2019-05-25 12:00] VITALS: BP 139/80
[2019-05-25] MEDS: CEFTRIAXONE SOD 1 GM/NS 50 ML 50 ML IV SCH (12:16)
[2019-05-25 16:00] VITALS: BP 139/86
[2019-05-25] MEDS ORDERED: POTASSIUM CHLORIDE 20 MEQ TAB CR PO NR (17:30)
[2019-05-25] MEDS ORDERED: AUGMENTIN 875-1 EACH PO (18:42)
--- NOTE | 2019-05-26 09:25 | Discharge Summary ---
FINAL DISCHARGE DIAGNOSES: 1. Ileus with underlying small-bowel obstruction, status post NG tube and rectal tube with much improvement-cleared for discharge by GI and General Surgery. 2. Type 2 diabetes. 3. Hyperlipidemia. 4. Recent tummy tuck performed by Plastic Surgery. CONSULTANTS: 1. Plastic Surgery. 2. General Surgery. 3. GI. PHYSICAL EXAMINATION: VITAL SIGNS: Temperature is 96.7, pulse 92, respiratory rate is 18, blood pressure is 131/79, and pulse ox is 97% on room air. LABORATORY FINDINGS: White count 4.2, hemoglobin 11, hematocrit 32, and platelets of 214. Coagulation; PT 13, INR 1, PTT 38. Chemistries reviewed and stable. MICROBIOLOGY: None. IMAGING STUDIES: Chest x-ray on admission low lung volumes, atelectasis of the lung bases. No evidence of acute disease. CT chest showed there is marked distention of small bowel and the colon to the splenic flexure. As specific etiology is not determinate, this may represent severe ileus. An intraluminal obstruction lesion in the distal descending colon cannot be excluded, but is not seen. There is marked distention of the cecum measuring as much as 11.1 cm, which is concerning. There is no evidence of free air seen. There is trace ascites in the abdomen. No evidence for acute pulmonary embolism. Consolidation with air bronchograms in both bilateral lobes may represent extensive atelectasis/pneumonia. In the anterior abdominal wall near the umbilicus, there is fat stranding and thickening of the anterior musculature and soft tissue air bubbles. This was due to recent surgery that the patient had from her tummy tuck, which causes evaluated the patient, had no other concerns, and cleared for discharge. Abdominal x-ray on discharge shows a little bit of no signs of pneumoperitoneum. Dilated air-filled small bowel loops, but the patient is tolerating diet well with no issues. HOSPITAL COURSE: This is a 53-year-old female, who came into the emergency room with complaints of severe abdominal distention, nausea, vomiting, and decreased oral intake. The patient was admitted and imaging studies was consistent with an ileus versus a small-bowel obstruction or possibility of both. General Surgery and GI were consulted. The patient had serial KUBs with consistency of small bowel obstruction and ileus. An NG tube was placed for decompression as well as the patient underwent a colonoscope decompression by GI and a rectal tube was placed in the mid wall suction with much improvement. The patient was decompressed and was feeling much better. She was started on a clear liquid diet, advance to regular diet prior to being discharged, which she tolerated very well. As per General Surgery's note and GI, the patient has been cleared for discharge to home. Plastic Surgery also cleared the patient with outpatient followup in her office in about 1-2 weeks' time. The patient has been cleared for discharge by all consultants. The patient was tolerating diet well, ambulating, had no complaints or concerns and was ready for discharge home. Her potassium was replaced prior to being discharge with normal levels upon discharge. On the day of discharge, vital signs were stable, labs reviewed and stable. The patient was seen and evaluated and examined thoroughly on the day of discharge. No other complaints. The patient verbalized understanding and agrees to plan of care to follow up accordingly as an outpatient with the primary care physician in 1 week and General Surgery and GI in 2 weeks' time. The patient was discharged on oral Augmentin as she was on IV antibiotics. CT imaging possibly shows no underlying pneumonia but was treated accordingly. MEDICATIONS: See med reconciliation form including oral Augmentin, discharge for home. DIET: Heart healthy. DISPOSITION: Home. CONDITION: Stable. In the event of any worsening symptoms, the patient was come back to the ED for further evaluation. This discharge summary took greater than 35 minutes. MD KIAN Paz/LOREN /[id number]
== END 2019-05-25 19:19 | disposition home or self-care (01) | DRG 389 ==
LOC: ER 16:32 → ERHOLD 20:18 → MED/SURG 21:48
PROVIDERS: ADMIT Internal Medicine; ATTEND Internal Medicine
PROC: 0D7E8ZZ Dilation of Large Intestine, Via Natural or Artificial Opening Endoscopic (ICD-10-PCS; 2019-05-22)
PROC: 0D9670Z Drainage of Stomach with Drainage Device, Via Natural or Artificial Opening (ICD-10-PCS; principal; 2019-05-22 11:59)
DX: K56.0 Paralytic ileus (principal); E87.1 Hypo-osmolality and hyponatremia; K59.39 Other megacolon; E11.8 Type 2 diabetes mellitus with unspecified complications; E78.5 Hyperlipidemia, unspecified; R14.0 Abdominal distension (gaseous); E87.6 Hypokalemia; E11.9 Type 2 diabetes mellitus without complications; K64.8 Other hemorrhoids; Z28.21 Immunization not carried out because of patient refusal; Z79.84 Long term (current) use of oral hypoglycemic drugs
CPT/HCPCS: 36415; 45378; 71045; 71260; 74018; 74019; 74177; 80048; 80053; 81001; 82550; 82553; 82948; 84132; 84484; 85007; 85025; 85027; 85379; 85610; 85730; 93005; 99284; J0360; J0696; J1100; J1170; J1650; J2001; J2060; J2250; J2405; J3010; J7030; Q9967